=== PATIENT | male | born 1995 | race Caucasian/White ===

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

== ENCOUNTER 2017-02-05 11:01 | Emergency (ER) | payer BC ==
[2017-02-05 11:55] VITALS: BP 126/63
--- NOTE | 2017-02-05 13:22 | UC ---
Dental HPI - HPI Summary HPI Summary: Woke up today with open area in tooth #6, lots of pain with touching, eating, drinking. Ibuprofen and tylenol not helping. Can feel heartbeat in tooth. Thinks he had a root canal in that tooth in the past, has apt with dentist in 8 days. - History of Current Complaint Hx Obtained From: Patient Onset/Duration: Gradual Onset, Lasting Hours Severity: Moderate Aggravating: Cold, Chewing Related History: Previous Dental Care on Same Tooth <Maria C Cortes - Last Filed: 02/05/17 13:20> <Yi Pearson - Last Filed: 02/06/17 07:08> - History of Current Complaint Chief Complaint: UCDentalProblem Stated Complaint: TOOTH NERVE PAIN/BROKEN TOOTH Time Seen by Provider: 02/05/17 13:10 - Allergies/Home Medications Allergies/Adverse Reactions: Allergies Allergy/AdvReac Type Severity Reaction Status Date / Time No Known Allergies Allergy Verified 03/22/16 13:47 PMH/Surg Hx/FS Hx/Imm Hx Previously Healthy: Yes Endocrine History Of: Denies: Diabetes Cardiovascular History Of: Denies: Hypertension, Pacemaker/ICD - Surgical History Surgical History: None - Family History Known Family History: Positive: Cardiac Disease, Hypertension, Diabetes - Social History Alcohol Use: None Substance Use Type: None Smoking Status (MU): Light Every Day Tobacco Smoker Type: Cigarettes - Immunization History Vaccination Up to Date: Yes <Maria C Cortes - Last Filed: 02/05/17 13:20> Review of Systems Constitutional: Negative Skin: Negative Eyes: Negative ENT: Dental Pain Respiratory: Negative Cardiovascular: Negative Gastrointestinal: Negative Genitourinary: Negative Motor: Negative Neurovascular: Negative Musculoskeletal: Negative Neurological: Negative Psychological: Negative All Other Systems Reviewed And Are Negative: Yes <Maria C Cortes - Last Filed: 02/05/17 13:20> Physical Exam Triage Information Reviewed: Yes Appearance: Well-Appearing, Well-Nourished Vital Signs: Initial Vital Signs Temp 98.2 F 02/05/17 11:49 Pulse 92 02/05/17 11:49 Resp 16 02/05/17 11:49 BP 126/63 02/05/17 11:49 Pulse Ox 99 02/05/17 11:49 Vital Signs Reviewed: Yes Eye Exam: Normal Eyes: Positive: Conjunctiva Clear ENT Exam: Normal ENT: Positive: Normal ENT inspection, Hearing grossly normal, Pharynx normal, TMs normal. Negative: Tonsillar swelling Dental: Positive: Percussion Tenderness @ - #6, Gross Decay/Caries @ - multiple , Dental Fracture @ - open area on tooth #6 Neck exam: Normal Neck: Positive: Supple, Nontender, No Lymphadenopathy Respiratory Exam: Normal Respiratory: Positive: Chest non-tender, Lungs clear, Normal breath sounds, No respiratory distress, No accessory muscle use Cardiovascular Exam: Normal Cardiovascular: Positive: RRR, No Murmur Musculoskeletal Exam: Normal Neurological Exam: Normal Neurological: Positive: Alert Psychological Exam: Normal Skin Exam: Normal <Maria C Cortes - Last Filed: 02/05/17 13:20> Vital Signs: Initial Vital Signs Temp 98.2 F 02/05/17 11:49 Pulse 92 02/05/17 11:49 Resp 16 02/05/17 11:49 BP 126/63 02/05/17 11:49 Pulse Ox 99 02/05/17 11:49 <Yi Pearson - Last Filed: 02/06/17 07:08> Dental Complaint Course/Dx - Differential Dx/Diagnosis Provider Diagnoses: #6 dental pain <Maria C Cortes - Last Filed: 02/05/17 13:20> Discharge <Maria C Cortes - Last Filed: 02/05/17 13:20> <Yi Pearson - Last Filed: 02/06/17 07:08> - Discharge Plan Condition: Stable Disposition: HOME Prescriptions: HYDROcodone/ACETAMIN 5-325 MG* [Snyder 5-325 TAB*] 1 - 2 tab PO BEDTIME PRN #8 tab MDD 4 PRN Reason: Pain Indomethacin CAP* [Indocin CAP*] 50 mg PO TID PRN #30 cap PRN Reason: Pain Lidocaine 2% VISCOUS* [Xylocaine 2% Viscous*] 5 ml SWISH SPIT Q4H PRN #100 ml PRN Reason: Pain Penicillin VK TAB 500 MG(NF) [Penicillin VK 500 mg Tab(NF)] 500 mg PO QID #28 tab Patient Education Materials: Toothache (ED) Referrals: Sam Engle MD [Primary Care Provider] - Additional Instructions: Please follow up with your dentist next Saturday as already planned. If you have new or severe symptoms in the mean time, please return here. Attestation Statement User Type: Provider - I was available for consult. This patient was seen by the advanced practice provider. The patient was not presented to, seen by, or examined by me.-Julia <Yi Pearson - Last Filed: 02/06/17 07:08>
== END 2017-02-05 13:25 | disposition home or self-care (01) ==
LOC: UCEAST 11:01
DX: K08.89 Other specified disorders of teeth and supporting structures (principal); F17.210 Nicotine dependence, cigarettes, uncomplicated
CPT/HCPCS: 99212; G0463

== ENCOUNTER 2018-06-07 09:13 | Emergency (ER) | payer BC ==
[2018-06-07 10:02] VITALS: BP 113/71
--- NOTE | 2018-06-07 10:19 | UC ---
Throat Pain/Nasal [place] HPI - HPI Summary HPI Summary: 23 yo male presents with sinus pain/pressure/congestion and dry cough for the last 3 days. He tells me that he usually tries to "wait things out", but he is going out of town in a few days and does not want to get worse while away. He has not been taking anything OTC. Denies fever, chills, sore throat, SOB, chest pain. - History of Current Complaint Chief Complaint: UCRespiratory Stated Complaint: CONGESTED,COUGH Time Seen by Provider: 06/07/18 10:19 Hx Obtained From: Patient Onset/Duration: Gradual Onset Pain Intensity: 0 Cough: Nonproductive - Allergies/Home Medications Allergies/Adverse Reactions: Allergies Allergy/AdvReac Type Severity Reaction Status Date / Time No Known Allergies Allergy Verified 06/07/18 10:02 Home Medications: Home Medications Dextroamphetamine/Amphetamine [Adderall Xr 20 mg Capsule] 20 mg PO 06/07/18 [ History] PMH/Surg Hx/FS Hx/Imm Hx - Additional Past Medical History Additional PMH: ADHD Previously Healthy: Yes - Surgical History Surgical History: None - Family History Known Family History: Positive: Cardiac Disease, Hypertension, Diabetes - Social History Occupation: Student Lives: Dormitory/Roommates Alcohol Use: Rare Substance Use Type: None Smoking Status (MU): Light Every Day Tobacco Smoker Type: Cigarettes - Immunization History Vaccination Up to Date: Yes Review of Systems Constitutional: Negative Skin: Negative Eyes: Negative ENT: Nasal Discharge, Sinus Congestion, Sinus Pain/Tenderness Respiratory: Cough Cardiovascular: Negative Gastrointestinal: Negative Neurovascular: Negative Neurological: Negative Psychological: Negative All Other Systems Reviewed And Are Negative: Yes Physical Exam - Summary Physical Exam Summary: GENERAL: NAD. WDWN. No pain distress. SKIN: No rashes, sores, lesions, or open wounds. HEENT: Head: AT/NC Eyes: EOM intact. Conjunctiva clear without inflammation or discharge. Ears: Hearing grossly normal. TMs intact, no bulging, erythema, or edema. Nose: Nasal mucosa mildly erythematous with clear discharge. Mild TTP maxillary and frontal sinus. Throat: Posterior oropharynx with mild erythema. Now exudates or tonsillar enlargement. Uvula midline. NECK: Supple. Nontender. No lymphadenopathy. CHEST: CTAB. No r/r/w. No accessory muscle use. Breathing comfortably and in no distress. CV: RRR. Without m/r/g. Pulses intact. NEURO: Alert. CN II-XII grossly intact. PSYCH: Age appropriate behavior. Triage Information Reviewed: Yes Vital Signs: Initial Vital Signs Temp 97.8 F 06/07/18 09:59 Pulse 65 06/07/18 09:59 Resp 18 06/07/18 09:59 BP 113/71 06/07/18 09:59 Pulse Ox 100 06/07/18 09:59 Vital Signs Reviewed: Yes Throat Pain/Nasal Course/Dx - Course Course Of Treatment: Sinusitis. Pharyngitis - Differential Dx/Diagnosis Provider Diagnoses: Sinusitis Discharge - Sign-Out/Discharge Documenting (check all that apply): Patient Departure All imaging exams completed and their final reports reviewed: No Studies - Discharge Plan Condition: Stable Disposition: HOME Prescriptions: Azithromycin TAB* [Zithromax TAB (Z-YOGI) 250 mg #6 tabs] 2 tab PO .TODAY, THEN 1 DAILY #1 yogi Patient Education Materials: Acute Cough (ED) Referrals: No Primary Care Phys,NOPCP [Primary Care Provider] - Additional Instructions: If you develop a fever, shortness of breath, chest pain, new or worsening symptoms - please call your PCP or go to the ED. - Billing Disposition and Condition Condition: STABLE Disposition: Home
== END 2018-06-07 10:40 | disposition home or self-care (01) ==
LOC: UCEAST 09:13
DX: J32.9 Chronic sinusitis, unspecified (principal); F17.210 Nicotine dependence, cigarettes, uncomplicated
CPT/HCPCS: 99212; G0463